=== PATIENT | female | born 2000 | race Caucasian/White ===

== ENCOUNTER 2024-12-10 23:41 | Emergency (ER) | payer SELFPAY ==
[~2024-12-10] VITALS: Ht 167.6 cm; Wt 60.0 kg
[2024-12-10 23:49] VITALS: O2SAT 99
[2024-12-11] MEDS ORDERED: AMOX1TAB16 MT (02:12)
[2024-12-11 02:15] VITALS: BP 138/76; PULSE 79; RESP 16; TEMP 37.2; O2SAT 99
== END 2024-12-11 02:25 | disposition home or self-care (01) ==
LOC: ER 23:41
DX: J32.9 Chronic sinusitis, unspecified (principal)
CPT/HCPCS: 71045; 93005; 99283